=== PATIENT | female | born 1995 | race Caucasian/White ===

== ENCOUNTER 2018-11-14 13:12 | Emergency (ER) | payer OTHER ==
[~2018-11-14] VITALS: Ht 165.1 cm; Wt 57.7 kg
[2018-11-14 13:19] VITALS: Ht 165.1 cm; Wt 57.7 kg
[2018-11-14] MEDS ORDERED: KETOROLAC 15 MG INJ IV STA (13:45)
[2018-11-14] MEDS ORDERED: SODIUM CHLORIDE 0.9% 1L BAG IV* STA (13:45)
[2018-11-14] MEDS ORDERED: ONDANSETRON 4 MG INJ IV STA (13:45)
[2018-11-14 13:49] VITALS: BP 145/78; PULSE 88; RESP 16
[2018-11-14] MEDS ORDERED: ACETAMINOPHEN 325 MG TAB PO ONE (14:00)
[2018-11-14 15:00] VITALS: BP 111/66; PULSE 92
[2018-11-14] MEDS ORDERED: METOCLOPRAMIDE 10 MG INJ IV ONE (16:30)
[2018-11-14] MEDS ORDERED: ONDA8TAB9 PO (17:03)
[2018-11-14] MEDS ORDERED: IBUP-1542 PO (17:03)
--- NOTE | 2018-11-14 17:03 | ERD ---
ER Documentation Chief Complaint Chief Complaint Complains of a fever with headache since this am HPI This is a 23-year-old female with no significant past medical history who is presenting with 1 day of fever, chills, myalgias, nausea, nonbilious nonbloody yellow vomiting, waxing and waning throbbing mild frontal headache. 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 The patient is taken Tylenol at home with no improvement of her symptoms. She does not endorse any exacerbating or alleviating factors. The patient has had no headache or vision changes. The patient does not endorse neck or back pain. The patient denies lightheadedness or dizziness. The patient has had no chest pain or trouble breathing. The patient denies nausea or vomiting. The patient denies abdominal pain. The patient denies changes to bowel movements or urination. The patient has had no focal deficits. The patient has had no weakness or numbness or tingling to the face or extremities. ROS All systems reviewed and are negative except as per history of present illness. Medications Home Meds No Active Prescriptions or Reported Meds Allergies Allergies: Coded Allergies: No Known Allergy (Unverified , 11/14/18) PMhx/Soc Medical and Surgical Hx: pt denies Medical Hx, pt denies Surgical Hx History of Surgery: No Anesthesia Reaction: No Hx Neurological Disorder: No Hx Respiratory Disorders: No Hx Cardiac Disorders: No Hx Psychiatric Problems: No Hx Miscellaneous Medical Probl: No Hx Alcohol Use: Yes (occasional) Hx Substance Use: No Hx Tobacco Use: No Smoking Status: Never smoker FmHx Family History: No diabetes Physical Exam Vitals Vital Signs Date Temp Pulse Resp B/P (MAP) Pulse Ox O2 O2 Flow FiO2 Time Delivery Rate 11/14/18 99.9 92 111/66 97 Room Air 15:00 (81) 11/14/18 98.8 13:54 11/14/18 101.8 158 20 130/75 100 13:19 (93) Physical Exam Const: No apparent distress, well-developed, well-nourished Head: Normocephalic, Atraumatic Eyes: Normal Conjunctiva. Extraocular movements intact. Pupils equal, round and reactive to light ENT: Normal External Ears, Nose and Mouth. Neck: Full range of motion. No meningismus. Resp: Clear to auscultation bilaterally, No wheezes, rales or rhonchi Cardio: Regular rhythm. Tachycardia. No murmurs, rubs or gallops Abd: Soft, non tender, non distended. Normal bowel sounds Skin: No petechiae or rashes Back: No midline tenderness. No CVA tenderness Ext: No cyanosis, or edema Neur: Awake and alert, oriented 4. Cranial nerves intact. No facial droop. Normal strength, sensation and coordination. Psych: Normal Mood and Affect Result Diagram: 11/14/18 1350 11/14/18 1350 Results 24 hrs Laboratory Tests Test 11/14/18 13:50 11/14/18 13:55 11/14/18 14:54 11/14/18 15:00 White Blood Count 13.2 10^3/ul Red Blood Count 4.49 10^6/ul Hemoglobin 12.2 g/dl Hematocrit 36.4 % Mean Corpuscular 81.1 fl Volume Mean Corpuscular 27.2 pg Hemoglobin Mean Corpuscular 33.5 g/dl Hemoglobin Concent Red Cell 12.9 % Distribution Width Platelet Count 227 10^3/UL Mean Platelet 10.1 fl Volume Immature 0.500 % Granulocytes % Neutrophils % 89.6 % Lymphocytes % 5.9 % Monocytes % 3.8 % Eosinophils % 0.0 % Basophils % 0.2 % Nucleated Red Blood 0.0 /100WBC Cells % Immature 0.060 10^3/ul Granulocytes # Neutrophils # 11.9 10^3/ul Lymphocytes # 0.8 10^3/ul Monocytes # 0.5 10^3/ul Eosinophils # 0.0 10^3/ul Basophils # 0.0 10^3/ul Nucleated Red Blood 0.0 10^3/ul Cells # Sodium Level 138 mmol/L Potassium Level 4.0 mmol/L Chloride Level 102 mmol/L Carbon Dioxide 21 mmol/L Level Anion Gap 15 Blood Urea Nitrogen 7 mg/dl Creatinine 0.75 mg/dl Est Glomerular > 60 mL/min Filtrat Rate mL/min Glucose Level 104 mg/dl Calcium Level 10.3 mg/dl Total Bilirubin 0.8 mg/dl Direct Bilirubin 0.00 mg/dl Indirect Bilirubin 0.8 mg/dl Aspartate Amino 21 IU/L Transf (AST/SGOT) Alanine 17 IU/L Aminotransferase (A LT/SGPT) Alkaline 54 IU/L Phosphatase Total Protein 8.6 g/dl Albumin 4.9 g/dl Globulin 3.70 g/dl Albumin/Globulin 1.32 Ratio POC Venous Lactate 2.1 mmol/L Urine Color STRAW Urine Clarity CLEAR Urine pH 8.0 Urine Specific 1.004 [place] Urine Ketones 1+ mg/dL Urine Nitrite NEGATIVE mg/dL Urine Bilirubin NEGATIVE mg/dL Urine Urobilinogen NEGATIVE mg/dL Urine Leukocyte TRACE Kenneth/ul Esterase Urine Microscopic 4 /HPF RBC Urine Microscopic 5 /HPF WBC Urine Squamous FEW /HPF Epithelial Cells Urine Bacteria FEW /HPF Urine Hemoglobin 1+ mg/dL Urine Glucose NEGATIVE mg/dL Urine Total Protein NEGATIVE mg/dl Urine NEGATIVE Test Test 11/14/18 16:22 POC Venous Lactate 0.7 mmol/L Current Medications Medications Dose Sig/Nicole Start Time Status Last (Trade) Ordered Route PRN Stop Time Admin Dose Reason Admin Sodium 1,730 ml BOLUS OVER 2 11/14/18 DC 11/14/18 Chloride HOURS STAT 13:45 11/14/18 13:53 (NS) IV* 13:48 Ketorolac 15 mg ONCE STAT 11/14/18 DC 11/14/18 Tromethamine IV 13:45 11/14/18 14:07 (Toradol) 13:48 650 mg ONCE ONCE 11/14/18 DC 11/14/18 Acetaminophen PO 14:00 11/14/18 13:54 (Tylenol 14:01 Tab) Ondansetron 4 mg ONCE STAT 11/14/18 DC 11/14/18 HCl (Zofran IV 13:45 11/14/18 13:53 Inj) 13:48 10 mg ONCE ONCE 11/14/18 DC 11/14/18 Metoclopramid IV 16:30 11/14/18 16:14 e HCl 16:31 (Reglan) Procedures/MDM MDM The patient's presentation warrants further investigation. Previous medical records, if available, were reviewed. LABS The patient's laboratory testing was obtained and reviewed. No emergent tr eatment was required unless described below. CBC: Leukocytosis with shift, concerning for a possible infection. No E/o anemia or thrombocytopenia Chemistry: No E/o severe acidosis or alkalosis or renal failure or liver disease or diabetic ketoacidosis Lactate: Initially elevated at 2.1. Repeat is at 0.7 Urine: No E/o acute infection or hematuria Influenza: Negative EKG EKG read by me: Rate/Rhythm: Sinus tachycardia at 130 bpm Intervals: Normal [place]: Normal Impression: Nonspecific repolarization changes without evidence of acute ischemia. Sinus tachycardia IMAGING Imaging and Radiology interpretation reviewed. CXR FINDINGS: The lungs are clear. The heart size is normal. There is no pleural effusion. There is no pneumothorax. IMPRESSION: Normal chest radiograph. Electronically viewed and signed by Bijan Luna MD, MD on 11/14/2018 14:40 TREATMENT/DISPOSITION The patient presents with symptoms most consistent with a viral syndrome. The patient was initially tachycardic and febrile. She did have a very mild leukocytosis. The patient's lactic acid was also mildly elevated initially. The patient was treated with IV fluids, Toradol and Tylenol. The patient's vital signs resolved to normal. The patient's lactic acid is now well within normal limits. The patient was treated with IV fluids, Tylenol, Toradol, Zofran and Reglan for symptom control. After treatment, the patient symptoms improved significantly. I anticipate that much of her symptoms were related to her nausea and vomiting and likely dehydration. The patient would benefit from Zofran at home. I do not see any evidence of a bacterial infection. I doubt otitis media or pharyngitis or pneumonia. The patient's influenza study is negative. I have very low suspicion for sepsis, and I do not feel the patient requires antibiotics or inpatient management. I believe her tachycardia to be related to her fever and viral syndrome, but a cardiac etiology was considered. The patient's chest xray does not reveal pneumonia or pneumothorax or pleural effusions or pulmonary edema. The patient does not have a widened mediastinum and does not have signs or symptoms concerning for thoracic aortic aneurysm or dissection. The patient does not have pneumomediastinum or signs concerning for esophageal tear or rupture. The patient has no clinical or radiographic signs of pericardial effusion or ta mponade. The patient does not have pneumoperitoneum and I have decreased suspicion of viscus perforation as possible referred pain. The patient does not have a history of heart failure and I have low suspicion for this. The patient does not have a diagnosis of COPD and is not wheezing today. The patient is not tachypneic or hypoxic. The patient is breathing comfortably and without pleuritic pain. The patient is not on hormonal therapy. The patient has no history of clotting or bleeding disorders. The patient has no calf tenderness. The patient has had no hemoptysis. I have decreased suspicion for PE. The patient's EKG does not reveal cardiac ischemia. I have low suspicion for acute coronary syndrome. The patient did endorse a headache as well, which I attribute to her fever. Differential diagnosis also includes migraine, tension headache, cluster headache. The patient has no focal deficits. The neurologic exam is reassuring. I have decreased suspicion for cerebral ischemia. There was no trauma or injury. There is no personal or family history of cerebral aneurysm. This is not the worst headache of the patient's life. It was not acutely severe. It is been progressive in nature. I have decreased suspicion for SAH or other ICH. I have low suspicion for temporal arteritis, cavernous venous thrombosis, subdural hematoma, epidural hematoma, meningitis. Upon reevaluation of the patient, symptoms have improved. No emergent diagnoses were identified. At this time, I feel that the patient stable for discharge. The patient was instructed to follow-up with a primary care physician in 1-3 days. The patient will be given strict precautions with which to return to the emergency department. Prescriptions: Ibuprofen, Zofran Disclaimer: Inadvertent spelling and grammatical errors are likely due to EHR/dictation software use and do not reflect on the overall quality of patient care. Note that the electronic time recorded on this note does not necessarily reflect the actual time of the patient encounter. Departure Diagnosis: Primary Impression: Viral syndrome Additional Impressions: Fever Fever type: unspecified Qualified Codes: R50.9 - Fever, unspecified Tachycardia Leukocytosis Leukocytosis type: unspecified Qualified Codes: D72.829 - Elevated white blood cell count, unspecified Lactic acidosis Headache Headache type: unspecified Headache chronicity pattern: acute headache Intractability: not intractable Qualified Codes: R51 - Headache Condition: Stable Patient Instructions: Fever Control (Adult), Headache, Unspecified, Sinus Tachycardia, Viral Syndrome (Adult) Additional Instructions: Thank you for for coming to [facility] for your care today. Please ask your nurse or provider if you have questions about your care today and do not leave until all your questions have been answered. Please use any medications given as directed and follow-up with your doctor (or the doctor you were referred to) in the next 1-3 days. If you do not have a primary care doctor you may follow up at the [facility] or [facility] (listed below). You may also use motrin and tylenol as needed for fever and/or pain unless instructed otherwise by your provider or nurse. Indications for more urgent follow-up have been discussed, but you may return to the Emergency Department at ANY time for any worrisome or worsening symptoms. If you have abdominal pain, please know that no test or exam you received is perfect and you should follow up within 8 hours for continued pain. If you had any imaging studies today, such as an X-Ray or CT Scan, these studies will be reviewed later by a radiologist. You will be called if there are important findings that were not identified today, so make sure the contact information you provided at registration is correct. If you received any narcotic pain control medicine today, such as Vicodin, Morphine or Dilaudid, your coordination and judgment may be affected for a number of hours. Please do not drive or operate heavy machinery, and you may want someone to assist you at home. If you were given a prescription for narcotic medication, be aware that it is very addictive- use sparingly and only if necessary. PLEASE SEEK FURTHER EVALUATION AND MANAGEMENT AT YOUR DOCTORS OFFICE WITHIN THE NEXT 1-3 DAYS. IT IS YOUR RESPONSIBILITY TO MAKE AN APPOINTMENT FOR FOLOW-UP CARE. IF YOU HAVE A PRIMARY DOCTOR, PLEASE CALL THEIR OFFICE TO SCHEDULE AN APPOINTMENT FOR FOLLOW UP. IF YOU DO NOT HAVE A PRIMARY DOCTOR YOU CAN CALL OUR PHYSICIAN REFERRAL HOTLINE AT IF YOU CAN NOT AFFORD TO SEE A PHYSICIAN YOU CAN CHOSE FROM THE FOLLOWING [facility] CLINICS: [facility] [address] [facility] [address] [facility]. [facility] [address] [facility] [address] [facility] [address] [facility]. [facility]. [address] MARISSA VELA MD Nov 14, 2018 16:56
== END 2018-11-14 17:45 | disposition home or self-care (01) ==
LOC: E/R 13:12
DX: B34.9 Viral infection, unspecified (principal); R00.0 Tachycardia, unspecified; D72.829 Elevated white blood cell count, unspecified; E87.2 Acidosis
CPT/HCPCS: 71045; 80053; 81001; 83605; 84703; 85025; 93005; J1885; J2405; J2765; J7030; Z7610; 36415; 96374; 96375